=== PATIENT | female | born 1950 | race Caucasian/White ===

== ENCOUNTER → 2019-11-29 | Outpatient (CLI) | payer MEDICARE ==
[~2019-11-29] MED LIST: ALEN35TA13 PO; CALC1CAP8 PO; CHOL100012 PO; MULT-658 PO; SIMV20TA19 PO
== END | disposition home or self-care (01) ==
LOC: STAR 13:02
PROVIDERS: ATTEND Specialist
DX: Z01.810 Encounter for preprocedural cardiovascular examination (principal); D11.0 Benign neoplasm of parotid gland
CPT/HCPCS: 93005

== ENCOUNTER 2019-12-06 08:34 | Day surgery (SDC) | payer MEDICARE ==
[~2019-12-06] VITALS: Ht 157.5 cm; Wt 88.8 kg
[2019-12-06] MEDS ORDERED: MIDAZOLAM 1 MG/ML, 2ML ONE (08:45)
[2019-12-06] MEDS ORDERED: FENTANYL PF 100 MCG/2ML ONE ×3 (08:45→13:06)
[2019-12-06] MEDS ORDERED: MEPERIDINE/PF 25MG/0.5ML IVPush PRN (09:00)
[2019-12-06] MEDS ORDERED: HYDROcodone/APAP 7.5-325MG/15ML UDC PO PRN (09:00)
[2019-12-06] MEDS ORDERED: PROMETHAZINE 25 MG/ML, 1ML IVPush PRN (09:00)
[2019-12-06] MEDS ORDERED: OXYcodone 5 MG/5 ML ORAL.SOL UDC PO PRN (09:00)
[2019-12-06] MEDS ORDERED: LACTATED RINGERS 1,000 ML IV SCH (09:18)
[2019-12-06 09:21] VITALS: BP 128/86
[2019-12-06] MEDS ORDERED: CHLORHEXIDINE 15 ML UDC ONE (09:25)
[2019-12-06] MEDS ORDERED: LIDOCAINE 1%-EPI 1:100K, 20ML ONE (09:28)
[2019-12-06] MEDS ORDERED: NEOSPORIN OINT. PKT 1 PACKET ONE (09:28)
[2019-12-06] MEDS ORDERED: CHLORHEXIDINE 15 ML UDC MM ONE (09:30)
[2019-12-06] MEDS ORDERED: CEFAZOLIN 1,000 MG ONE (10:54)
[2019-12-06] MEDS ORDERED: PHENYLEPHRINE 10 MG/ML ONE (10:54)
[2019-12-06] MEDS ORDERED: EPHEDRINE 50 MG/ML, 1ML ONE (10:54)
[2019-12-06] MEDS ORDERED: SUCCINYLCHOLINE 20 MG/ML, 10ML ONE (10:54)
[2019-12-06] MEDS ORDERED: PROPOFOL 10 MG/ML, 20ML ONE (10:54)
[2019-12-06] MEDS ORDERED: DEXAMETHASONE 4 MG/ML, 1ML ONE (10:54)
[2019-12-06] MEDS ORDERED: ONDANSETRON 2MG/ML, 2ML ONE (10:54)
[2019-12-06] MEDS ORDERED: OXYcodone 5 MG/5 ML ORAL.SOL UDC ONE (13:06)
[2019-12-06] MEDS: FENTANYL PF 100 MCG/2ML IV PRN ×2 (13:09→13:24)
[2019-12-06] MEDS ORDERED: HYDROmorphone 1 MG/ML, 1ML INJ ONE (13:34)
[2019-12-06] MEDS: HYDROmorphone 1 MG/ML, 1ML INJ IVPush PRN ×2 (13:36→13:45)
== END 2019-12-06 15:40 | disposition home or self-care (01) ==
LOC: OR 08:34
PROVIDERS: ATTEND Specialist
DX: D11.0 Benign neoplasm of parotid gland (principal); Z11.59 Encounter for screening for other viral diseases; C82.31 Follicular lymphoma grade IIIa, lymph nodes of head, face, and neck; C82.41 Follicular lymphoma grade IIIb, lymph nodes of head, face, and neck; F17.210 Nicotine dependence, cigarettes, uncomplicated; M81.0 Age-related osteoporosis without current pathological fracture; E78.5 Hyperlipidemia, unspecified; F17.200 Nicotine dependence, unspecified, uncomplicated; Z79.899 Other long term (current) drug therapy; Z82.49 Family history of ischemic heart disease and other diseases of the circulatory system
CPT/HCPCS: 36415; 42415; 87635; 88307; 88341; 88342; 88360; J0330; J0690; J1100; J1170; J2250; J2370; J2405; J2704; J3010; J3490; J7120

== ENCOUNTER 2020-01-23 08:54 | Day surgery (SDC) | payer MEDICARE ==
[~2020-01-23] VITALS: Ht 157.5 cm; Wt 88.4 kg
[2020-01-23] MEDS ORDERED: SODIUM CHLORIDE 0.9% 1,000 ML IV SCH (09:23)
[2020-01-23 09:26] VITALS: BP 122/89
[2020-01-23] MEDS ORDERED: CEFAZOLIN PMX 1GM/50ML 50 ML IV STA (09:44)
[2020-01-23] MEDS ORDERED: LIDOCAINE 1%, 20ML ONE (10:38)
[2020-01-23] MEDS ORDERED: FENTANYL PF 100 MCG/2ML ONE (10:45)
[2020-01-23] MEDS ORDERED: NALOXONE 1 MG/ML, 2ML ONE (10:45)
[2020-01-23] MEDS ORDERED: MIDAZOLAM 1 MG/ML, 5ML ONE (10:45)
[2020-01-23] MEDS ORDERED: FLUMAZENIL 0.1 MG/1 ML, 5ML ONE (10:45)
== END 2020-01-23 12:40 | disposition home or self-care (01) ==
LOC: OUT 08:54
PROVIDERS: ATTEND Pathology Hematology
DX: C82.21 Follicular lymphoma grade III, unspecified, lymph nodes of head, face, and neck (principal); E78.5 Hyperlipidemia, unspecified; M81.0 Age-related osteoporosis without current pathological fracture; F17.210 Nicotine dependence, cigarettes, uncomplicated; Z98.890 Other specified postprocedural states
CPT/HCPCS: 36561; 76937; 77001; 99156; 99157; C1788; J1642; J2250; J3010; J2310

== ENCOUNTER 2020-12-31 07:04 | Day surgery (SDC) | payer MEDICARE ==
[~2020-12-31] VITALS: Ht 157.5 cm; Wt 90.5 kg
[~2020-12-31 07:04] MED LIST changes: -ALEN35TA13 PO; +ALEN35TA49 PO
[2020-12-31 07:43] VITALS: BP 116/81
[2020-12-31] MEDS ORDERED: LIDOCAINE 1%, 20ML ONE (08:37)
[2020-12-31] MEDS ORDERED: MIDAZOLAM 1 MG/ML, 5ML ONE ×2 (08:44→08:45)
[2020-12-31] MEDS ORDERED: FENTANYL PF 100 MCG/2ML ONE ×2 (08:44)
[2020-12-31] MEDS ORDERED: NALOXONE 1 MG/ML, 2ML ONE (08:45)
[2020-12-31] MEDS ORDERED: FLUMAZENIL 0.1 MG/1 ML, 5ML ONE (08:45)
== END 2020-12-31 12:20 | disposition home or self-care (01) ==
LOC: OUT 07:04 → EDSTATUS 09:00 → OUT 12:20
PROVIDERS: ATTEND Pathology Hematology
DX: Z45.2 Encounter for adjustment and management of vascular access device (principal); C82.21 Follicular lymphoma grade III, unspecified, lymph nodes of head, face, and neck; E78.5 Hyperlipidemia, unspecified; M81.0 Age-related osteoporosis without current pathological fracture; F17.210 Nicotine dependence, cigarettes, uncomplicated; Z79.899 Other long term (current) drug therapy; Z92.21 Personal history of antineoplastic chemotherapy
CPT/HCPCS: 36590; 77001; 99156; J2250; J3010; 99157; J2310